=== PATIENT | female | born 1995 | race Caucasian/White ===

== ENCOUNTER 2019-08-06 06:00 | Outpatient (RCR) | payer BC, MEDICAID, SELFPAY | END 2019-08-12 23:59 | disposition home or self-care (01) | LOC: WPT 06:00 | PROVIDERS: PCP Physician Assistant Medical; Referring Provider Orthopaedic Surgery Foot and Ankle Surgery; Visit Provider Orthopaedic Surgery Foot and Ankle Surgery | DX: Z47.89 Encounter for other orthopedic aftercare (principal); Z98.890 Other specified postprocedural states | CPT/HCPCS: 97110; 97161 ==

== ENCOUNTER 2019-08-13 06:00 | Outpatient (RCR) | payer BC, MEDICAID, SELFPAY | END 2019-09-12 23:59 | disposition home or self-care (01) | LOC: WPT 06:00 | PROVIDERS: PCP Physician Assistant Medical; Referring Provider Orthopaedic Surgery Foot and Ankle Surgery; Visit Provider Orthopaedic Surgery Foot and Ankle Surgery | DX: Z47.89 Encounter for other orthopedic aftercare (principal); Z98.890 Other specified postprocedural states | CPT/HCPCS: 97110; 97140; 97161 ==

== ENCOUNTER 2019-09-13 06:00 | Outpatient (RCR) | payer BC, MEDICAID, SELFPAY | END 2019-10-13 23:59 | disposition home or self-care (01) | LOC: WPT 06:00 | PROVIDERS: PCP Physician Assistant Medical; Referring Provider Orthopaedic Surgery Foot and Ankle Surgery; Visit Provider Orthopaedic Surgery Foot and Ankle Surgery | DX: Z47.89 Encounter for other orthopedic aftercare (principal) | CPT/HCPCS: 97110; 97116; 97140; 97164 ==

== ENCOUNTER 2019-11-20 06:00 | Outpatient (RCR) | payer BC, MEDICAID, SELFPAY | END 2019-12-13 23:59 | disposition home or self-care (01) | LOC: WPT 06:00 | PROVIDERS: PCP Physician Assistant Medical; Referring Provider Orthopaedic Surgery Foot and Ankle Surgery; Visit Provider Orthopaedic Surgery Foot and Ankle Surgery | DX: Z98.890 Other specified postprocedural states (principal) | CPT/HCPCS: 97110; 97161; 97164 ==

== ENCOUNTER 2019-12-14 06:00 | Outpatient (RCR) | payer BC, MEDICAID, SELFPAY | END 2020-01-12 23:59 | disposition home or self-care (01) | LOC: WPT 06:00 | PROVIDERS: PCP Physician Assistant Medical; Referring Provider Orthopaedic Surgery Foot and Ankle Surgery; Visit Provider Orthopaedic Surgery Foot and Ankle Surgery | DX: Z47.89 Encounter for other orthopedic aftercare (principal); Z98.890 Other specified postprocedural states | CPT/HCPCS: 97110 ==

== ENCOUNTER 2020-01-06 12:19 | Outpatient (CLI) | payer BC, MEDICAID, SELFPAY ==
--- NOTE | 2020-01-06 12:28 | MR_ITS ---
WS: [id number] MRI RIGHT KNEE ARTHROGRAM TECHNIQUE: Axial PD, coronal PD fat sat, coronal PD, sagittal PD, and sagittal PD fat-sat images obta ined. Intra-articular gadolinium was administered and additional multiplanar imaging was obtained. CLINICAL INFORMATION: STIFFNESS OF LEFT KNEE COMPARISON: None. FINDINGS: Arthrogram demonstrates adequate distention of the joint capsule. Recent postoperative changes ACL reconstruction with partial lateral meniscectomy. Evidence of medial meniscus repair. Distal quadriceps and patella tendons are intact. Small suprapatellar joint effusio n. ACL graft with tibial tunnel. Anterior cruciate ligament graft appears normal and intact. No evide nce of recurrent tear. Normal posterior cruciate ligament. Mild thinning of the medial and lateral meniscus due to prior surgery. No acute appearing meniscal te ars. Small amount of chronic appearing intrasubstance signal abnormality in the posterior horn medial meniscus. No evidence of recurrent meniscal tear. No edema in the distal femoral condyles or tibial plateau. Mild chondromalacia patella. No subchondral edema. Medial and lateral patellar retinaculum appear nor mal. Medial and lateral collateral ligaments appear normal and intact. Small amount of soft tissue ed dell about the knee. MR/MR knee LT wo/w con [id number] IMPRESSION: 1. Recent postoperative changes ACL construction with tibial tunnel. ACL graft is intact. No recurrent tear. 2. Normal posterior cruciate ligament. 3. Postoperative changes involving the meniscus with partial meniscectomy. No acute appearing meniscal tears. Small amount of chronic intrasubstance signal a bnormality involving the posterior horn medial meniscus. 4. Mild chondromalacia patella. No subchondral edema. 5. Medial and lateral collateral ligaments are intact. 6. Small suprapatellar effusion with mild soft tissue edema about the joint li ne likely postoperative. 7. No bone marrow edema in the femoral condyles and tibial plateau.
--- NOTE | 2020-01-06 12:30 | IR_ITS ---
WS: [id number] LEFT KNEE ARTHROGRAM Fluoroscopic guided left knee arthrogram. CLINICAL INFORMATION: STIFFNESS OF KNEE NOT ELSEWHERE CLASSIFIED COMPARISON: None. TECHNIQUE: The procedure including risks, benefits, and complications were discussed with the patient , who agreed to proceed. Timeout was performed. Using sterile technique, the patient was prepped and draped in the usual sterile fashion. After 1% lidocaine injection using fluoroscopic guidance, a 22-g auge spinal needle was advanced into the left patellofemoral compartment. Subsequently 40 cc of a mix ture containing 10 cc 1% lidocaine, 20 cc normal saline, 10 cc Omnipaque 300, and 0.2 cc gadolinium w as administered. No immediate complications. FLUOROSCOPY TIME: 0.7 minutes. IR/[place] [id number] IMPRESSION: Uncomplicated left knee fluoroscopic guided arthrogram. MRI to follow.
[2020-01-06] MEDS: iohexol 240 mg/mL 50 mL Btl INTRA-ARTI (14:07)
== END 2020-01-06 12:20 | disposition home or self-care (01) ==
LOC: RADWPI 12:25
PROVIDERS: PCP Physician Assistant Medical; Visit Provider Orthopaedic Surgery Foot and Ankle Surgery
DX: M25.662 Stiffness of left knee, not elsewhere classified (principal); M22.42 Chondromalacia patellae, left knee; M25.462 Effusion, left knee
CPT/HCPCS: 27369; 73723; 77002; Q9966

== ENCOUNTER 2020-03-02 06:00 | Outpatient (RCR) | payer BC, MEDICAID, SELFPAY | END 2020-03-14 23:59 | disposition home or self-care (01) | LOC: WPT 06:00 | PROVIDERS: PCP Physician Assistant Medical; Referring Provider Orthopaedic Surgery Foot and Ankle Surgery; Visit Provider Orthopaedic Surgery Foot and Ankle Surgery | DX: Z47.89 Encounter for other orthopedic aftercare (principal) | CPT/HCPCS: 97110; 97161 ==

== ENCOUNTER 2020-03-15 06:00 | Outpatient (RCR) | payer BC, MEDICAID, SELFPAY | END 2020-04-11 23:59 | disposition home or self-care (01) | LOC: WPT 06:00 | PROVIDERS: PCP Physician Assistant Medical; Referring Provider Orthopaedic Surgery Foot and Ankle Surgery; Visit Provider Orthopaedic Surgery Foot and Ankle Surgery | DX: Z47.89 Encounter for other orthopedic aftercare (principal) | CPT/HCPCS: 97110; 97140 ==

== ENCOUNTER → 2021-11-16 08:40 | Outpatient (BNVA) | payer MEDICAID, SELFPAY | PROVIDERS: Visit Provider Nurse Practitioner Family | DX: E66.9 Obesity, unspecified (principal); E07.9 Disorder of thyroid, unspecified; E11.9 Type 2 diabetes mellitus without complications | CPT/HCPCS: 84439; 84443 ==

== ENCOUNTER → 2022-01-30 09:47 | Outpatient (BNVA) | payer MEDICAID, SELFPAY | PROVIDERS: PCP Nurse Practitioner; Visit Provider Nurse Practitioner Family | DX: R68.89 Other general symptoms and signs (principal); H66.91 Otitis media, unspecified, right ear; J10.1 Influenza due to other identified influenza virus with other respiratory manifestations | CPT/HCPCS: 87400 ==

== ENCOUNTER → 2022-08-14 11:03 | Outpatient (BNVA) | payer MEDICAID, SELFPAY | PROVIDERS: PCP Nurse Practitioner; Visit Provider Nurse Practitioner | DX: I88.9 Nonspecific lymphadenitis, unspecified (principal) | CPT/HCPCS: 84443; 85025 ==

== ENCOUNTER 2022-08-29 14:25 | Outpatient (CLI) | payer MEDICAID, SELFPAY ==
--- NOTE | 2022-08-29 15:15 | US_ITS ---
WS: [id number] Exam: US soft tissue head neck [id number] Date/Time of Exam: 08/29/2022 3:26 PM Reason For Exam: R59.1 - Generalized enlarged lymph nodes Soft tissues of the right mastoid region are targeted for ultrasound evaluation. There are 2 small ovoid soft tissue nodules identified along the right mastoid region that most likel y represent small lymph nodes. Both show partial fatty replacement and have benign appearance. Both m easure less than 1 cm greatest short axis dimension. No other sign of mass. No abnormal fluid collect ions were noted. US/US soft tissue head neck [id number] IMPRESSION: 1. 2 small ovoid soft tissue nodules along the right mastoid region most likely small lymph nodes. Both show partial fatty replacement and do not have suspici ous appearance. The largest node measures about 6 mm at greatest short axis dim ension and the smaller node measures approximately 3.1 mm at greatest short axi s dimension. 2. No other significant finding.
== END 2022-08-29 14:26 | disposition home or self-care (01) ==
LOC: RAD 14:26
PROVIDERS: PCP Nurse Practitioner; Visit Provider Nurse Practitioner
DX: R59.1 Generalized enlarged lymph nodes (principal)
CPT/HCPCS: 76536

== ENCOUNTER → 2023-10-04 14:47 | Outpatient (BNVA) | payer MEDICAID, SELFPAY | PROVIDERS: PCP Nurse Practitioner; Visit Provider Nurse Practitioner Family | DX: R50.9 Fever, unspecified (principal) | CPT/HCPCS: 87426 ==

== ENCOUNTER → 2024-09-09 16:07 | Outpatient (BNVA) | payer MEDICAID, SELFPAY | PROVIDERS: PCP Nurse Practitioner Family; Visit Provider Nurse Practitioner Family | DX: R30.0 Dysuria (principal) | CPT/HCPCS: 81000; 81003 ==